=== PATIENT | female | born 2000 | race Caucasian/White ===

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

== ENCOUNTER 2020-04-15 13:11 | Emergency (ER) | payer OTHER ==
[~2020-04-15] VITALS: Ht 167.6 cm; Wt 59.0 kg
[2020-04-15] MEDS ORDERED: NEXPLANON68 MG SUB-Q (13:23)
== END 2020-04-15 17:26 | disposition home or self-care (01) ==
LOC: ED 13:11
DX: R10.31 Right lower quadrant pain (principal)
CPT/HCPCS: 74177; 80053; 81001; 83690; 84703; 85025; 96361; 96375; 99284-25; J1170; J1885; J2405; J7030; Q9967